=== PATIENT | male | born 1940 | race Caucasian/White ===

== ENCOUNTER → 2021-02-06 | Emergency (ER) | payer MEDICARE ==
[~2021-02-06] VITALS: Ht 172.7 cm; Wt 79.4 kg
[~2021-02-06] MED LIST: AMLODIPINE BESYL5 MG PO; LISINOPRIL-HCT1 EAC1 PO; METOPROLOL SUCC25 MG PO
== END ==
LOC: ED 09:03
DX: S61.412A Laceration without foreign body of left hand, initial encounter (principal); Z23 Encounter for immunization; W26.0XXA Contact with knife, initial encounter
CPT/HCPCS: 12001; 90471; 90715; 99282-25